=== PATIENT | male | born 1995 | race Caucasian/White ===

== ENCOUNTER 2017-12-03 21:17 | Emergency (ER) | payer BC ==
[2017-12-03] MEDS ORDERED: OMEG-23 PO (22:24)
[2017-12-03] MEDS ORDERED: MULT-865 PO (22:24)
--- NOTE | 2017-12-03 22:25 | ER Report ---
History and Physical Time Seen By MD: 22:25 Hx. of Stated Complaint: PT STATES THAT HE INJURED HIS RIGHT TRICEP PLAYING SOCCER TONIGHT. HPI/ROS CHIEF COMPLAINT: Triceps pain HISTORY OF PRESENT ILLNESS: This is a 22 year old male. He was playing intermural soccer, and was playing goalie. On a play, he felt a popping sensation and pain in the right triceps muscle. Pain now with range of motion, minimal with palpation. No other pain. No shortness of breath. Allergies: Coded Allergies: No Known Drug Allergies (Unverified , 12/03/17) Home Meds Reported Medications [place]-3 Fatty Acids/Fish Oil (FISH OIL 1,000 MG SOFTGEL) 1 Each Capsule, 1 EACH PO DAILY, CAPSULE 12/03/17 Multivitamin (DAILY MULTIPLE VITAMIN) 1 Each Tablet, 1 EACH PO QDAY 12/03/17 Reviewed Nurses Notes: Yes Constitutional Vital Sign - Last 24 Hours 12/03/17 12/03/17 21:20 23:30 Temp 98.1 Pulse 88 78 Resp 14 14 B/P (MAP) 144/88 128/82 (97) Pulse Ox 94 96 O2 Delivery Room Air Room Air Physical Exam General: Alert, no distress. Musculoskeletal: Minimal pain with palpation, pain with passive range of motion, but more pain with active range of motion. Pain over belly of triceps muscle. No sign of tendon rupture. Cardiovascular: normal capillary refill. Neuro: Normal sensation and motor function. Skin: No bruising or skin breakdown. Medical Decision Making ED Course/Re-evaluation ED Course Conservative management discussed with the patient regarding muscle strain. Decision to Disposition Date: Dec 03, 2017 Decision to Disposition Time: 22:44 Depart Departure Latest Vital Signs Vital Signs Date Time Temp Pulse Resp B/P (MAP) Pulse Ox O2 Delivery O2 Flow Rate FiO2 12/03/17 23:30 78 14 128/82 (97) 96 Room Air 12/03/17 21:20 98.1 Impression: Primary Impression: Strain of triceps muscle Condition: Improved Disposition: HOME OR SELF-CARE Referrals: CONOR SCALES (PCP) Patient Instructions: Muscle Strain (ED) Additional Instructions: Rest with relative rest (gentle range of motion). Apply ice every hour while awake for about 15-20 minutes. Take Ibuprofen 200mg over the counter tablets, 4 every 8 hours as needed for pain. SASHA wrap as needed for compression. If not improving, consider follow-up with [facility] or with [facility]. Problem Qualifiers Primary Impression: Strain of triceps muscle Encounter type: initial encounter Laterality: right Qualified Codes: S46.311A - Strain of muscle, fascia and tendon of triceps, right arm, initial encounter YVONNE DARBY MD Dec 03, 2017 22:25
[2017-12-03 23:30] VITALS: BP 128/82
== END 2017-12-03 23:40 | disposition home or self-care (01) ==
LOC: ER 22:36
DX: S46.311A Strain of muscle, fascia and tendon of triceps, right arm, initial encounter (principal)
CPT/HCPCS: 99281